=== PATIENT | male | born 1950 | race Caucasian/White ===

== ENCOUNTER 2018-08-18 11:23 | Outpatient (CLI) | payer OTHER ==
[~2018-08-18 11:23] MED LIST: ROSU10TA2 PO; TEST30SO PO
== END 2018-08-18 23:59 | disposition home or self-care (01) ==
LOC: RAD 11:23
PROVIDERS: ATTEND Emergency Medicine
DX: N26.1 Atrophy of kidney (terminal) (principal); R31.9 Hematuria, unspecified
CPT/HCPCS: 76770